=== PATIENT | male | born 1970 | race American Indian/Alaskan Native ===

== ENCOUNTER 2016-12-09 21:16 | Emergency (ER) | payer SELFPAY ==
[~2016-12-09 21:16] MED LIST: ADRENALIN ONE; SODIUM BICARBONATE IV ONE
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
== END 2016-12-09 22:20 ==
LOC: ED 21:16
DX: I46.9 Cardiac arrest, cause unspecified (principal); S21.102A Unspecified open wound of left front wall of thorax without penetration into thoracic cavity, initial encounter; F17.210 Nicotine dependence, cigarettes, uncomplicated; F12.10 Cannabis abuse, uncomplicated; W34.00XA Accidental discharge from unspecified firearms or gun, initial encounter; Y93.89 Activity, other specified; Y92.89 Other specified places as the place of occurrence of the external cause; Y99.8 Other external cause status
CPT/HCPCS: 92950; 99285; J0171